=== PATIENT | female | born 1980 | race Caucasian/White ===

== ENCOUNTER 2018-10-30 10:49 | Emergency (ER) | payer SELFPAY ==
[2018-10-30 10:56] VITALS: BP 95/62
[2018-10-30] MEDS ORDERED: HYDROCODONE/ACETAMINOPHEN 5-325 MG TABLET PO ONE (11:07)
[2018-10-30] MEDS ORDERED: DIPH/PERTUSS(ACELL)/TETANUS VAC/PF 0.5 ML SYR (>=10YO) IM ONE (11:07)
--- NOTE | 2018-10-30 11:09 | ER Document Report ---
ED Medical Screen (RME) - General Chief Complaint: Dog Bite Stated Complaint: DOG BITE Time Seen by Provider: 10/30/18 11:04 Mode of Arrival: Ambulatory Information source: Patient Notes: 37-year-old female presented to ED for dog bite to the left elbow. She states that the dog belonged to her and her roommate. The dog is usually a Separate but they both arrived at the same time she went to break up the fight and they 1 of the dogs bit her. She states her tetanus is not up-to-date and the dog's vaccinations are a couple months old but the dogs are healthy. Patient has 3 lacerations to the left elbow. She has been medicated with a tetanus immunization and a [place] while in the pit area. Patient is alert oriented respirations regular and unlabored speaking in full sentences. She states her pain is a 5 out of 5. Animal control paperwork has been filled out in [facility] I have greeted and performed a rapid initial assessment of this patient. A comprehensive ED assessment and evaluation of the patient, analysis of test results and completion of medical decision making process will be conducted by an additional ED providers. Dictation of this chart was performed using voice recognition software; therefore, there may be some unintended grammatical errors. TRAVEL OUTSIDE OF THE [place] IN LAST 30 DAYS: No - Related Data Allergies/Adverse Reactions: hydromorphone [From Dilaudid] Allergy (Verified 10/30/18 10:51) Past Medical History - Social History Chew tobacco use (# tins/day): No Frequency of alcohol use: None Drug Abuse: None Renal/ Medical History: Denies: Hx Peritoneal Dialysis Physical Exam - Vital signs Vitals: Temp Pulse Resp BP Pulse Ox 97.5 F 71 22 H 95/62 L 96 10/30/18 10:55 10/30/18 10:55 10/30/18 10:55 10/30/18 10:55 10/30/18 10:55 Course - Vital Signs Vital signs: Temp Pulse Resp BP Pulse Ox 97.5 F 71 22 H 95/62 L 96 10/30/18 10:55 10/30/18 10:55 10/30/18 10:55 10/30/18 10:55 10/30/18 10:55
[2018-10-30] MEDS ORDERED: AMOXICILLIN TRIHYD 250 MG CAPSULE PO ONE (12:07)
[2018-10-30] MEDS ORDERED: AMOXICILLIN TR/POT CLAVULANATE 500-125 MG TAB PO ONE (12:07)
--- NOTE | 2018-10-30 12:12 | ER Document Report ---
HPI - HPI Patient complains to provider of: Dog bite Time Seen by Provider: 10/30/18 11:04 Pain Level: 4 Context: Patient is otherwise healthy 37-year-old female presents to the emergency department for a dog bite to her left elbow. Patient states her friend came over to her house with her dog. States patient's dog and her friend's dog do not typically get along. States she was trying to separate them and accidentally got bit on the left elbow. Patient states her dog is up-to-date on immunizations. States she is also now up-to-date on immunizations as she was given her tetanus vaccine in triage. Animal control paper work filled out - REPRODUCTIVE Reproductive: DENIES: : - DERM Skin Color: Normal Past Medical History - General Information source: Patient - Social History Smoking Status: Current Every Day Smoker Chew tobacco use (# tins/day): No Frequency of alcohol use: None Drug Abuse: None Family History: Reviewed & Not Pertinent Patient has suicidal ideation: No Patient has homicidal ideation: No Renal/ Medical History: Denies: Hx Peritoneal Dialysis Vertical Provider Document - CONSTITUTIONAL Agree With Documented VS: Yes Notes: GENERAL: Alert, interacts well. No acute distress. HEAD: Normocephalic, atraumatic. EYES: Pupils equal, round, and reactive to light. Extraocular movements intact. ENT: Oral mucosa moist, tongue midline. NECK: Full range of motion. Supple. Trachea midline. LUNGS: Clear to auscultation bilaterally, no wheezes, rales, or rhonchi. No respiratory distress. HEART: Regular rate and rhythm. No murmur ABDOMEN: Soft, non-tender. Non-distended. Bowel sounds present in all 4 quadrants. EXTREMITIES: Moves all 4 extremities spontaneously. No edema, normal radial and dorsalis pedis pulses bilaterally. No cyanosis. BACK: no cervical, thoracic, lumbar midline tenderness. No saddle anesthesia, normal distal neurovascular exam. NEUROLOGICAL: Alert and oriented x3. Normal speech. cranial nerves II through XII grossly intact PSYCH: Normal affect, normal mood. SKIN: Warm, dry, normal turgor. Patient has three 1 cm lacerations on the lateral aspect of the left elbow and one 1 cm laceration in the medial aspect of the left elbow. Patient has full range of motion of the left elbow with no pain. - INFECTION CONTROL TRAVEL OUTSIDE OF THE [place] IN LAST 30 DAYS: No Course - Re-evaluation Re-evalutation: 10/30/18 12:09 I had a lengthy discussion with patient about closing dog bite wounds. I have also discussed with her my concerns that it is over the joint. Lacerations appear to be 1 cm each more so puncture wound, the medial aspect wound. Patient and I have agreed that we will not suture these lacerations. Wound was cleaned irrigated with 500 cc normal saline and Shur-Clens. Patient was given a dose of Augmentin in the emergency department. Discussed close wound precautions with the patient. Patient voices understanding, stable for discharge. - Vital Signs Vital signs: Temp Pulse Resp BP Pulse Ox 97.5 F 71 22 H 95/62 L 96 10/30/18 10:55 10/30/18 10:55 10/30/18 10:55 10/30/18 10:55 10/30/18 10:55 Discharge - Discharge Clinical Impression: Dog bite Qualifiers: Encounter type: initial encounter Qualified Code(s): W54.0XXA - Bitten by dog, initial encounter Condition: Stable Disposition: HOME, SELF-CARE Instructions: Animal Bites (OM) Additional Instructions: As we discussed you have been seen and treated in the emergency department for a dog bite to your left elbow. We are ingredients that these laceration should not be closed. We have also discussed at length your need for oral antibiotics. Please make sure you are taking antibiotics as prescribed. Please also make sure you keep the wound clean and dry. Please follow-up with your primary care provider in the next 24 to 48 hours. Return to the emergency room for any other concerns. Prescriptions: Amox Tr/Potassium Clavulanate [Augmentin 875-125 Tablet] 1 tab PO BID 10 Days tablet
[2018-10-30] MEDS ORDERED: HYDROCODONE/ACETAMINOPHEN 5-325 MG (6 TAB/ER DISP) PO PRN (12:13)
== END 2018-10-30 12:47 | disposition home or self-care (01) ==
LOC: ER 10:49
DX: S51.052A Open bite, left elbow, initial encounter (principal); W54.0XXA Bitten by dog, initial encounter; Z23 Encounter for immunization; F17.200 Nicotine dependence, unspecified, uncomplicated
CPT/HCPCS: 99283; 90471; 90715; J3490